=== PATIENT | female | born 1960 | race Caucasian/White ===

== ENCOUNTER 2017-09-28 00:41 | Emergency (ER) | payer OTHER, MEDICARE ==
[~2017-09-28] VITALS: Ht 167.6 cm; Wt 113.0 kg
[~2017-09-28 00:41] MED LIST: GLEEVEC400 MG PO; LEVOTHYROXINE0.05 MG PO; LEVOTHYROXINE0.2 M1 PO; SYNTHROID PO; TASIGNA200 MG PO
[2017-09-28] MEDS ORDERED: INDOMETHACIN 5050 M1 (00:50)
[2017-09-28] MEDS ORDERED: ANTIFUNGAL (00:53)
[2017-09-28] MEDS ORDERED: PERCOCET 5-3251 EACH PO (01:13)
[2017-09-28 01:40] VITALS: BP 141/66
== END 2017-09-28 01:40 | disposition home or self-care (01) ==
LOC: M.ERS 00:41
DX: S83.8X1A Sprain of other specified parts of right knee, initial encounter (principal); E89.0 Postprocedural hypothyroidism; F17.210 Nicotine dependence, cigarettes, uncomplicated; Z90.710 Acquired absence of both cervix and uterus; Z85.6 Personal history of leukemia; Z88.5 Allergy status to narcotic agent; Z88.0 Allergy status to penicillin; Z91.041 Radiographic dye allergy status; X50.1XXA Overexertion from prolonged static or awkward postures, initial encounter; Y93.89 Activity, other specified; Y92.098 Other place in other non-institutional residence as the place of occurrence of the external cause; Y99.8 Other external cause status